=== PATIENT | male | born 1990 | race Caucasian/White ===

== ENCOUNTER 2020-10-07 23:58 | Emergency (ER) | payer SELFPAY ==
[~2020-10-07] VITALS: Ht 170.2 cm; Wt 117.9 kg
--- NOTE | 2020-10-07 23:58 | NUR ---
PT COURTNEY VAZQUEZ, PREBOOK. TAKEN TO CHAIR
[2020-10-08 00:07] VITALS: BP 124/75
--- NOTE | 2020-10-08 02:39 | NUR ---
TO BED 10 FROM CHAIR FOR US
--- NOTE | 2020-10-08 02:42 | NUR ---
Seen by CHRISD no nursing intervention needed for patient
[2020-10-08 02:47] VITALS: BP 124/75
--- NOTE | 2020-10-08 02:47 | NUR ---
Patient discharged with v/s stable. Written and verbal after care instructions given and explained. Patient verbalized understanding. Police with patient in custody. ID band removed. All questions addressed prior to discharge. Advised to follow up with PMD.
--- NOTE | 2020-10-08 04:50 | NUR ---
[facility]is rosales in [facility] - 10/08/20 at 0451 by LIZETTE Seen by ALEXANDRIA no nursing intervention needed
== END 2020-10-08 02:47 ==
LOC: MED 23:58
DX: S29.9XXA Unspecified injury of thorax, initial encounter (principal); Z02.89 Encounter for other administrative examinations; V98.8XXA Other specified transport accidents, initial encounter; Y93.89 Activity, other specified; Y92.89 Other specified places as the place of occurrence of the external cause; Y99.8 Other external cause status
CPT/HCPCS: 99284